=== PATIENT | female | born 1990 | race Caucasian/White ===

== ENCOUNTER 2024-06-29 17:16 | Emergency (ER) | payer MEDICAID ==
[~2024-06-29] VITALS: Ht 154.9 cm; Wt 82.0 kg
[~2024-06-29 17:16] MED LIST: IBUP-2030 PO
[2024-06-29 17:49] VITALS: BP 124/79; PULSE 83; RESP 18; TEMP 36.8; O2SAT 100
[2024-06-29 18:41] LABS: BASOPHILS % 0.3 % (0.0-2.0); EOSINOPHILS % 0.7 % (0.0-5.0); HEMATOCRIT. 38.1 % (36.0-48.0); LYMPHOCYTES % 27.9 % (20.0-50.0); MEAN CORPUSCULAR HEMOGLOBIN 25.7 pg (28.0-32.0); MEAN CORPUSCULAR HGB CONC 31.5 g/dL (31.0-37.0); MEAN CORPUSCULAR VOLUME 81.5 fL (81.0-99.0); MEAN PLATELET VOLUME 10.4 fl (7.4-10.4); MONOCYTES % 5.8 % (2.0-8.0); NEUTROPHILS % 65.3 % (40.0-76.0); PLATELET 182 x1000/uL (130-400); RED BLOOD CELL COUNT 4.68 mill/uL (4.2-5.4); WHITE BLOOD COUNT 7.9 x1000/uL (4.5-11.0)
[2024-06-29 18:48] LABS: CHLORIDE 105 mEq/L (98-107); POTASSIUM 3.7 mEq/L (3.5-5.1); SODIUM 138 mEq/L (136-145)
[2024-06-29 18:49] LABS: CALCIUM 10.1 mg/dL (8.7-10.4); CARBON DIOXIDE 26 mEq/L (21-32)
[2024-06-29 18:54] LABS: CREATININE 0.6 mg/dL (0.6-1.0); GLUCOSE 92 mg/dL (70-105); UREA NITROGEN BLOOD 8 mg/dL (9-23)
[2024-06-29 18:56] LABS: ALANINE AMINOTRANSFERASE 83 IU/L (10-49); ALBUMIN 4.4 g/dL (3.2-4.8); ASPARTATE AMINOTRANSFERASE 62 IU/L (<34); BILIRUBIN TOTAL 0.7 mg/dL (0.1-1.0); PROTEIN TOTAL 8.1 g/dL (6.0-8.3)
[2024-06-29 19:05] LABS: TROPONIN I HIGH SENSITIVITY < 4 ng/L (3.0-34)
== END 2024-06-29 21:29 | disposition left against medical advice (07) ==
LOC: ER 17:16
DX: R42 Dizziness and giddiness (principal); Z53.21 Procedure and treatment not carried out due to patient leaving prior to being seen by health care provider
CPT/HCPCS: 36415; 80053; 84484; 85025